=== PATIENT | female | born 1945 | race Caucasian/White ===

== ENCOUNTER → 2025-03-14 | Outpatient (CLI) | payer MEDICARE, SELFPAY ==
[2025-03-14 11:16] LABS: Basophils # (Auto) 0.1 Thou/mm3 (0.0-0.2); Basophils % (Auto) 1 % (0-2.5); Eosinophils # (Auto) 0.2 Thou/mm3 (0.0-0.5); Eosinophils % (Auto) 2 % (0-10); Hematocrit 45.9 % (36.0-46.0); Hemoglobin 15.2 g/dL (12.0-16.0); Immature Granulocytes Auto 0.02 Thou/mm3 (0.00-0.00); Lymphocytes # (Auto) 2.7 Thou/mm3 (1.0-4.8); Lymphocytes % (Auto) 33 % (10-50); Mean Corpuscular HGB Conc 33.1 g/dl (31.0-37.0); Mean Corpuscular Hemoglobin 27.8 pg (25.0-35.0); Mean Corpuscular Volume 84 fL (80-100); Monocytes # (Auto) 0.7 Thou/mm3 (0.0-0.8); Monocytes % (Auto) 9 % (0-12); Neutrophils # (Auto) 4.6 Thou/mm3 (1.8-7.7); Neutrophils % (Auto) 55 % (37-80); Nucleated Red Blood Cell # 0.00 Thou/mm3 (0.00-0.00); Nucleated Red Blood Cell % 0 /100 WBC (0); Platelet Count 433 Thou/mm3 (140-440); RDW Standard Deviation 42.3 fL (36.4-46.3); Red Blood Count 5.47 Miln/mm3 (4.00-5.20); White Blood Count 8.3 Thou/mm3 (3.6-11.0)
[2025-03-14 11:55] LABS: Alanine Aminotransferase 12 U/L (10-49); Albumin, Serum 5.0 gm/dL (3.4-4.8); Albumin/Globulin Ratio 1.7 (1.2-2.2); Alkaline Phosphatase 83 U/L (46-116); Anion Gap 10 (7-16); Aspartate Amino Transferase 29 U/L (0-34); BUN/Creatinine Ratio 15 Ratio (12-20); Bilirubin,Total 1.3 mg/dL (0.3-1.2); Blood Urea Nitrogen 12 mg/dL (9-23); Calcium 10.2 mg/dL (8.3-10.6); Calcium (Corrected) 10.2 mg/dL (8.5-10.1); Carbon Dioxide 25.6 mMol/L (20.0-31.0); Chloride 104 mMol/L (98-107); Creatinine (Component) 0.8 mg/dL (0.6-1.3); Free T4 (Free Thyroxine) 0.85 ng/dL (0.89-1.76); Globulin 3.0 gm/dL (2.3-3.5); Glucose 126 mg/dL (74-106); Osmolality,Calculated 281 (275-295); Potassium 4.7 mMol/L (3.4-5.1); Sodium 140 mMol/L (136-145); Thyroid Stimulating Hormone 56.49 uIU/mL (0.55-4.78); Total Protein 8.0 gm/dL (5.7-8.2); eGFR > 60 See Note
[2025-03-14 14:24] LABS: Cholesterol 245 mg/dL (132-200); Triglycerides 261 mg/dL (30-150)
[2025-03-14 14:53] LABS: Glucose Estimated Average 114 mg/dL (80-131); Hemoglobin A1C 5.6 % Hgb (4.8-6.0)
[2025-03-14 14:55] LABS: Cardiac Risk Estimate 5.6 RATIO (3.7-5.6); HDL Cholesterol 44 mg/dL (40-60); LDL Cholesterol,Calculated 149 mg/dL (0-130)
== END | disposition home or self-care (01) ==
PROVIDERS: PCP Internal Medicine; Referring Provider Internal Medicine; Visit Provider Internal Medicine
DX: R94.6 Abnormal results of thyroid function studies (principal); E03.9 Hypothyroidism, unspecified; I10 Essential (primary) hypertension; E78.5 Hyperlipidemia, unspecified
CPT/HCPCS: 36415; 80053; 80061; 83036; 84439; 84443; 85025

== ENCOUNTER 2025-05-24 13:35 | Emergency (ER) | payer MEDICARE, SELFPAY ==
[2025-05-24 13:36] VITALS: BMI 25.0
--- NOTE | 2025-05-24 14:00 | XR_ITS ---
EXAMINATION: PA lateral chest 2 views TECHNIQUE: Upright PA lateral chest 2 views Date and time: May 24, 2025, 1443 hours INDICATIONS: Positive for right leg DVT, chest pain today FINDINGS: Normal heart size Minor scarring left base No lobar pneumonia or pulmonary edema IMPRESSION: No lobar pneumonia or pulmonary edema
--- NOTE | 2025-05-24 14:00 | EKG_ITS ---
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
--- NOTE | 2025-05-24 14:01 | EDRME_ITS ---
Rapid Medical Screening Exam [facility] Arrival date/time: 05/24/25 13:35 80-year-old female with a history of hypertension, hypothyroidism presents to the emergency room with a chief complaint of left lower extremity swelling and tenderness as well as chest tightness x 3 days I have greeted and performed a focused initial assessment of this patient. A comprehensive ED assessment and evaluation of the patient, analysis of all test results, and completion of the medical decision making process will be conducted by additional ED providers. Chief Complaint: Recheck/Abnormal Lab/Rx Vital signs reviewed by provider: Yes Exam: S1 and S2 noted strong and regular rhythm Clear bilateral lung sounds no wheezing or any abnormal breath sounds Clinical Impression: STEMI/non-STEMI/DVT/cellulitis
[2025-05-24 14:19] VITALS: BP 144/76; PULSE 69; RESP 18; TEMP 36.6; O2SAT 97
[2025-05-24 14:45] LABS: Basophils # (Auto) 0.1 Thou/mm3 (0.0-0.2); Basophils % (Auto) 1 % (0-2.5); Eosinophils # (Auto) 0.2 Thou/mm3 (0.0-0.5); Eosinophils % (Auto) 2 % (0-10); Hematocrit 41.3 % (36.0-46.0); Hemoglobin 13.4 g/dL (12.0-16.0); Immature Granulocytes Auto 0.03 Thou/mm3 (0.00-0.00); Lymphocytes # (Auto) 2.3 Thou/mm3 (1.0-4.8); Lymphocytes % (Auto) 24 % (10-50); Mean Corpuscular HGB Conc 32.4 g/dl (31.0-37.0); Mean Corpuscular Hemoglobin 27.2 pg (25.0-35.0); Mean Corpuscular Volume 84 fL (80-100); Monocytes # (Auto) 1.0 Thou/mm3 (0.0-0.8); Monocytes % (Auto) 10 % (0-12); Neutrophils # (Auto) 6.2 Thou/mm3 (1.8-7.7); Neutrophils % (Auto) 64 % (37-80); Nucleated Red Blood Cell # 0.00 Thou/mm3 (0.00-0.00); Nucleated Red Blood Cell % 0 /100 WBC (0); Platelet Count 413 Thou/mm3 (140-440); RDW Standard Deviation 43.8 fL (36.4-46.3); Red Blood Count 4.93 Miln/mm3 (4.00-5.20); White Blood Count 9.7 Thou/mm3 (3.6-11.0)
[2025-05-24 14:57] LABS: D-Dimer 1690 ng/mL (<600)
[2025-05-24 14:59] LABS: INR 1.0 (0.9-1.3); Partial Thromboplastin Time 26.7 Seconds (22.0-36.0); Prothrombin Time 10.6 Seconds (9.0-12.2)
[2025-05-24 15:02] LABS: B-Type Natriuretic Peptide 140 pg/mL (0-100)
[2025-05-24 15:04] LABS: Alanine Aminotransferase 12 U/L (10-49); Albumin, Serum 5.3 gm/dL (3.4-4.8); Albumin/Globulin Ratio 2.0 (1.2-2.2); Alkaline Phosphatase 84 U/L (46-116); Anion Gap 10 (7-16); Aspartate Amino Transferase 24 U/L (0-34); BUN/Creatinine Ratio 20 Ratio (12-20); Bilirubin,Total 1.2 mg/dL (0.3-1.2); Blood Urea Nitrogen 14 mg/dL (9-23); Calcium 9.8 mg/dL (8.3-10.6); Calcium (Corrected) 9.8 mg/dL (8.5-10.1); Carbon Dioxide 27.3 mMol/L (20.0-31.0); Chloride 104 mMol/L (98-107); Creatinine (Component) 0.7 mg/dL (0.6-1.3); Estimated Creatinine Clearance 62.3 mL/min (>60); Globulin 2.7 gm/dL (2.3-3.5); Glucose 166 mg/dL (74-106); Osmolality,Calculated 285 (275-295); Potassium 4.6 mMol/L (3.4-5.1); Sodium 141 mMol/L (136-145); Total Protein 8.0 gm/dL (5.7-8.2); Troponin I < 0.020 ng/mL (0.0-0.045); eGFR > 60 See Note
--- NOTE | 2025-05-24 16:42 | EDNOTE_ITS ---
ED Extremity Problem RME/HPI General Chief complaint: Recheck/Abnormal Lab/Rx Stated complaint: SENT BY PMD FOR DVT ON R LEG Time Seen by Provider: 05/24/25 14:39 Source: patient, family and RN notes reviewed Arrival date/time: 05/24/25 13:35 Mode of arrival: ambulatory Limitations: no limitations RME / HPI Complaint: extremity swelling Onset (ago): week(s) (3 weeks) Consistency: constant Location: left Radiation: none Relieving factors: nothing Exacerbating factors: nothing RME / HPI Narrative: 05/24/25 13:35 80-year-old female with a history of hypertension, hypothyroidism presents to [facility] emergency room with a chief complaint of left lower extremity swelling and tenderness as well as chest tightness x 3 days I have greeted and performed a focused initial assessment of this patient. A comprehensive ED assessment and evaluation of the patient, analysis of all test results, and completion of the medical decision making process will be conducted by additional ED providers. Exam: S1 and S2 noted strong and regular rhythm Clear bilateral lung sounds no wheezing or any abnormal breath sounds Impression: STEMI/non-STEMI/DVT/cellulitis Related Data Home Medications ?Medication ?Instructions ?Recorded ?Confirmed losartan 100 1 tab PO QDAY ##0 08/08/12 0 12/30/20 mg-hydrochlorothiazide 25 mg tablet atenolol 50 mg tablet (Tenormin) 50 mg PO BID #0 tabs 03/05/15 12/30/20 levothyroxine 75 mcg tablet 75 mcg PO QDAY #0 tabs 12/1312/30/20 amlodipine 10 mg tablet 10 mg PO QDAY 05/04/1912/30 potassium chloride 10 mEq 10 meq PO EVERYOTHERDAY 11/1712/30/20 tablet,extended release gemfibrozil 600 mg tablet 600 mg PO HS 12/30/20 montelukast 10 mg tablet 10 mg PO QDAY 12/30/2012/30 Previous Rx's ?Medication ?Instructions ?Recorded apixaban 5 mg (74 tabs) tablets in 5 mg PO BID #74 tab s 05/24/25 a dose pack (Eliquis DVT-PE Treat 30D Start) Allergies Allergy/AdvReac Type Severity Reaction Status Date / Time clindamycin Allergy Severe Anaphylaxis Verified 05/24/25 13:39 Sulfa (Sulfonamide Allergy Severe Anaphylaxis Verified 05/24/25 13:39 Antibiotics) tetanus toxoid, adsorbed Allergy Severe Gastrointestinal Verified 05/24/25 13:39 Upset cephalexin Allergy Unknown Verified 05/24/25 13:39 erythromycin base Allergy Unknown Verified 05/24/25 13:39 meloxicam Allergy Unknown Verified 05/24/25 13:39 procaine Allergy Unknown Verified 05/24/25 13:39 Past Medical History Past Medical History CARDIAC: Positive Myocardial Infarction, Cardiac Arrhythmia, Valvular Heart Disease (mitral valve prolapse) and Hypertension; Negative Congestive Heart Failure RESPIRATORY: Negative Chronic Obstructive Pulmonary Disease (COPD) GENITOURINARY: Negative Renal Disease MUSCULOSKELETAL: Positive Musculoskeletal Disorders (neck injury) ENDOCRINE: Positive Diabetes Mellitus Type 2; Negative Diabetes Mellitus Type 1 Surgical History SURGICAL: Positive Tonsillectomy Social History SMOKING STATUS: Never smoker SUBSTANCE USE: does not use ED Exam General Limitations: Present no limitations General appearance: Present alert and in no apparent distress Head Head exam: Present atraumatic Eye Eye exam: Present normal appearance, PERRL and EOMI ENT ENT exam: Present normal exam, normal oropharynx and mucous membranes moist Neck Neck exam: Present normal inspection, full ROM and trachea midline Chest Chest inspection: Present normal inspection and symmetric chest wall rise Respiratory Respiratory exam: Present normal lung sounds bilaterally Cardiovascular Cardiovascular exam: Present regular rate, normal rhythm and normal heart sounds Abdominal Exam Abdominal exam: Present soft and normal bowel sounds Extremities Exam Extremities exam: Present other (Nonpitting edema, swelling to left lower extremity up to the mid thigh. Good distal pulses. Normal cap refill.) Back Exam Back exam: Present normal inspection and full ROM Neurological Exam Neurological exam: Present alert, oriented X3 and CN II-XII intact Psychiatric Psychiatric exam: Present normal affect and normal mood Skin Skin exam: Present warm, dry, intact and normal color Course Quality Measures none Orders Category Date Time Status EKG (ED ONLY) *Do not use* NOW Care 05/24/25 14:01 Completed EKG (ED Only) Stat Exams 05/24/25 14:00 Draft XR chest 2V Stat Exams 05/24/25 14:00 Completed BNP [B-Type Natriuretic Peptide] Stat Lab 05/24/25 14:26 Completed CBC Stat Lab 05/24/25 14:26 Completed CMP [Comprehensive Metabolic Panel] Stat Lab 05/24/25 14:26 Completed D-Dimer Stat Lab 05/24/25 14:26 Completed PT [Prothrombin Time with INR] Stat Lab 05/24/25 14:26 Completed PTT [Partial Thromboplastin Time] Stat Lab 05/24/25 14:26 Completed Troponin I Stat Lab 05/24/25 14:26 Completed Vital Signs Vital signs: Vital Signs Temperature 98 F 05/24/25 14:19 Pulse Rate 69 05/24/25 14:19 Respiratory Rate 18 05/24/25 14:19 Blood Pressure 144/76 H 05/24/25 14:19 Pulse Oximetry (%) 97 05/24/25 14:19 Oxygen Delivery Method Room Air 05/24/25 14:19 Extremity Problem MDM Narrative MDM Narrative:: Discussed this patient with Dr. Whitney who knows this patient well. She has been having pain for the last 3 weeks. Her daughter stated it started with swelling but she refused to come to the doctor to see her to rule out a DVT. The patient currently works at home but she has not had any recent travel and otherwise no surgeries. Otherwise no risk factors for DVT no family history. In the emergency department the patient was treated with ultrasound and labs. She is noted to have a DVT to the deep and superficial femoral down her leg. Discussed with Dr. Shaikh the patient's primary care physician who saw the patient in the office and sent her to the emergency department she feels that she can be discharged home. She already has given her a 1 month starter pack of the Eliquis because she anticipated the patient was not to be able to afford the medication. The patient states that the medication is approximately $500 however I told her she already has a starter pack and she needs to start that medication. She should follow-up with Dr. Shaikh next week so they can discuss Hao how to get her an additional dose after this 1 month is up. Patient data External records reviewed:: [facility] previous records (Patient seen 01/19/2025 by the emergency department for) Clinical information provided by:: patient Social determinants that could affect healthcare access:: none Patient has the following chronic illnesses:: Hypertension, diabetes, thyroid disease. How is presenting disease/condition affected by chronic disease/condition?: uneffected by Evaluation data The following diagnostics were reviewed and interpreted by me:: lab results and radiology exam(s) Lab and/or radiology exams considered but not ordered:: None Interpretation Summary: White count was 9.7, hemoglobin is 13/41. This is normal. Platelets are 413 and normal. INR is 1.0. D-dimer is 1690. Electrolytes are reviewed interpreted by me. Normal electrolytes. Glucose is 166 and thus the only thing that is elevated. EKG was reviewed interpreted by me. Normal sinus rhythm. Heart rate 70. ST-T wave change in V5, no elevations depressions. IL #144, QTc is 426. Normal EKG. Otherwise no other abnormalities chest x-ray is reviewed and interpreted by me. There is no infiltrate, pneumothorax, cardiomegaly, or pleural effusion. Chest x-ray by the radiologist is reviewed FINDINGS: Normal heart size Minor scarring left base No lobar pneumonia or pulmonary edema IMPRESSION: No lobar pneumonia or pulmonary edema Medications / Prescriptions Medications or Prescriptions considered but not ordered:: None Medication administrations:: Patient has medications already Consultations Consultation(s) initiated? (list below): Yes Consultation #1 (Physician, Specialty, Details): Discussed with Dr. Shaikh the patient's primary care who already gave her an Eliquis Dosepak. She asked me to write a prescription so that we can start initiating medicine for when her Dosepak is up. Time: 17:00 Diagnosis Extremity Problem Differential Diagnosis: gout, cellulitis, superficial thrombophlebitis, deep venous thrombosis of upper extremity and lower extremity edema Most likely diagnosis given after review of the tests above:: DVT lower extremity left Admission Indicated Admission indicated?: not indicated Explain why admission is indicated or not indicated:: Patient was able to ambulate. No hypoxia. No chest pain. Discussed with primary care and agree. Admission Request Was there a request for admission?: No Disposition Plan Disposition Plan: Discharge Discharge Attestation Discharge Attestation: The patient and all family members were given an opportunity to ask questions and understood the discharge instructions. Discharge instructions specifically effects, indications for sooner follow up or return to the emergency department, and the expected course of current diagnosis. Patient condition: Stable Discharge Plan Plan Patient Disposition: HOME (Self Care) Patient condition on transfer: Stable Prescriptions/Referrals Prescriptions/Med Rec: New Eliquis DVT-PE Treat 30D Start 5 mg (74 tabs) tablets,dose pack 5 mg PO BID Qty: 74 0RF No Action losartan-hydrochlorothiazide 100-25 mg Tablet 1 tab PO QDAY Qty: 0 levothyroxine 75 mcg Tablet 75 mcg PO QDAY Qty: 0 atenolol [Tenormin] 50 MG tablet 50 mg PO BID Qty: 0 potassium chloride 10 mEq Tablet Extended Release 10 meq PO EVERYOTHERDAY amlodipine 10 mg Tablet 10 mg PO QDAY gemfibrozil 600 mg tablet 600 mg PO HS montelukast 10 mg tablet 10 mg PO QDAY Patient Comments: TAKE 1 TABLET BY MOUTH EVERY DAY Referrals: Linda Shaikh MD [Primary Care Provider, Nephrology] - In 1 week Problem List Clinical Impression: DVT (deep venous thrombosis) Patient/Caregiver Discharge Instructions Education Materials: ED Deep Vein Thrombosis (DVT) Additional Instructions: Please take the Eliquis 10 mg twice a day for 7 days then switch to 5 mg twice a day until you finish the box. You will need to talk to Dr. Shaikh on Tuesday so you can get additional medications because you need to be on Eliquis for 6 months or more. Print Language: Upper Sorbian Stand Alone Forms: [employer] Award Info., Patient Portal Info Letter
== END 2025-05-24 17:51 | disposition home or self-care (01) ==
PROVIDERS: Nurse Practitioner Family; Emergency Provider Emergency Medicine; PCP Internal Medicine
DX: I82.401 Acute embolism and thrombosis of unspecified deep veins of right lower extremity (principal); E03.9 Hypothyroidism, unspecified; I10 Essential (primary) hypertension; Z79.01 Long term (current) use of anticoagulants
CPT/HCPCS: 36415; 71046; 80053; 83880; 84484; 85025; 85379; 85610; 85730; 93005; 99282

== ENCOUNTER → 2025-05-24 | Outpatient (CLI) | payer MEDICARE, SELFPAY ==
--- NOTE | 2025-05-24 12:21 | XR_ITS ---
Examination: Duplex scan of the lower extremity, unilateral left Date and time of exam: May 24, 2025, 1309 hours INDICATIONS: Left leg swelling beginning 3 weeks ago Technique: Duplex scan of the extremity veins using B-mode/grayscale imaging and Doppler spectral analysis and color flow Attention is directed to internal echogenicity, compression and augmentation involving these veins, color flow assessment, spectral analysis Findings: Positive for extensive occlusive deep vein thrombus involving the left common femoral proximal mid and distal left superficial femoral, left popliteal, left peroneal, left posterior tibial veins IMPRESSION: Extensive occlusive acute DVT..
== END | disposition home or self-care (01) ==
PROVIDERS: PCP Internal Medicine; Referring Provider Internal Medicine; Visit Provider Internal Medicine
DX: I82.492 Acute embolism and thrombosis of other specified deep vein of left lower extremity (principal)
CPT/HCPCS: 93971

== ENCOUNTER → 2025-07-18 | Outpatient (CLI) | payer MEDICARE, SELFPAY ==
[2025-07-18 10:30] LABS: Collection Type, Urine Clean Catch
[2025-07-18 10:48] LABS: Basophils # (Auto) 0.1 Thou/mm3 (0.0-0.2); Basophils % (Auto) 1 % (0-2.5); Eosinophils # (Auto) 0.3 Thou/mm3 (0.0-0.5); Eosinophils % (Auto) 3 % (0-10); Hematocrit 42.4 % (36.0-46.0); Hemoglobin 14.0 g/dL (12.0-16.0); Immature Granulocytes Auto 0.02 Thou/mm3 (0.00-0.00); Lymphocytes # (Auto) 3.4 Thou/mm3 (1.0-4.8); Lymphocytes % (Auto) 39 % (10-50); Mean Corpuscular HGB Conc 33.0 g/dl (31.0-37.0); Mean Corpuscular Hemoglobin 27.4 pg (25.0-35.0); Mean Corpuscular Volume 83 fL (80-100); Monocytes # (Auto) 0.9 Thou/mm3 (0.0-0.8); Monocytes % (Auto) 10 % (0-12); Neutrophils # (Auto) 4.1 Thou/mm3 (1.8-7.7); Neutrophils % (Auto) 47 % (37-80); Nucleated Red Blood Cell # 0.00 Thou/mm3 (0.00-0.00); Nucleated Red Blood Cell % 0 /100 WBC (0); Platelet Count 396 Thou/mm3 (140-440); RDW Standard Deviation 40.4 fL (36.4-46.3); Red Blood Count 5.11 Miln/mm3 (4.00-5.20); White Blood Count 8.8 Thou/mm3 (3.6-11.0)
[2025-07-18 11:08] LABS: Bacteria,Urine Rare; Bilirubin,Urine Negative (Negative); Blood,Urine Negative (Negative); Clarity,Urine Turbid (Clear/Hazy); Color,Urine Yellow (Lt Yel-Yel); Glucose, Urine Negative (Negative); Hyaline Casts,Urine 1 /hpf (0-1); Ketones,Urine Negative (Negative); Leukocyte Esterase,Urine Positive (Negative); Nitrite,Urine Negative (Negative); PH,Urine 5.5 (5.0-7.0); Protein,Urine Trace (Neg - Trace); RBC,Urine 5 /hpf (0-3); Specific Gravity,Urine 1.018 (1.001-1.035); Squamous Epithelial Cell,Urine 2 /hpf (0-5); Urobilinogen,Urine Negative mg/dL (0.0-1.0); WBC,Urine 19 /hpf (0-5)
[2025-07-18 11:21] LABS: Alanine Aminotransferase 23 U/L (10-49); Albumin, Serum 4.9 gm/dL (3.4-4.8); Albumin/Globulin Ratio 1.4 (1.2-2.2); Alkaline Phosphatase 85 U/L (46-116); Anion Gap 11 (7-16); Aspartate Amino Transferase 28 U/L (0-34); BUN/Creatinine Ratio 38 Ratio (12-20); Bilirubin,Total 1.6 mg/dL (0.3-1.2); Blood Urea Nitrogen 45 mg/dL (9-23); Calcium 10.1 mg/dL (8.3-10.6); Calcium (Corrected) 10.1 mg/dL (8.5-10.1); Carbon Dioxide 26.6 mMol/L (20.0-31.0); Chloride 103 mMol/L (98-107); Creatinine (Component) 1.2 mg/dL (0.6-1.3); Globulin 3.5 gm/dL (2.3-3.5); Glucose 116 mg/dL (74-106); Osmolality,Calculated 293 (275-295); Potassium 4.2 mMol/L (3.4-5.1); Sodium 141 mMol/L (136-145); Thyroid Stimulating Hormone 0.51 uIU/mL (0.55-4.78); Total Protein 8.4 gm/dL (5.7-8.2); eGFR 46 See Note
[2025-07-18 12:09] LABS: Glucose Estimated Average 123 mg/dL (80-131); Hemoglobin A1C 5.9 % Hgb (4.8-6.0)
[2025-07-18 12:15] LABS: Cardiac Risk Estimate 3.6 RATIO (3.7-5.6); Cholesterol 132 mg/dL (132-200); HDL Cholesterol 37 mg/dL (40-60); LDL Cholesterol,Calculated 51 mg/dL (0-130); Triglycerides 219 mg/dL (30-150)
== END | disposition home or self-care (01) ==
LOC: COPL 09:24
PROVIDERS: PCP Internal Medicine; Referring Provider Internal Medicine; Visit Provider Internal Medicine
DX: I10 Essential (primary) hypertension (principal); E78.5 Hyperlipidemia, unspecified; E03.9 Hypothyroidism, unspecified; R73.03 Prediabetes
CPT/HCPCS: 36415; 80053; 80061; 81001; 83036; 84443; 85025